=== PATIENT | female | born 1980 | race Caucasian/White ===

== ENCOUNTER 2016-07-07 08:12 | Inpatient (IN) | payer OTHER ==
[2016-07-07] VITALS (20 sets, daily range): BP systolic 110–143; BP diastolic 55–84
[~2016-07-07] VITALS: Ht 154.9 cm; Wt 66.2 kg
[~2016-07-07 08:12] MED LIST: VOL-PLUS TABLE1 EAC1 PO; ZOFRAN ODT4 MG PO
[2016-07-07] MEDS ORDERED: METHADONE10 MG PO (08:41)
[2016-07-07 10:34] LABS: EOSINOPHIL (%) 0.3 % (0-5); HEMATOCRIT 32.1 % (36.0-46.0); IMMATURE GRANULOCYTE (%) 0.3 % (0.0-0.7); INSTRUMENT ABS NEUTROPHIL CT 6.7 K/uL; MCH 33.9 PG (29.0-34.0); MCHC 34.9 G/DL (30.0-36.0); MCV 97.3 FL (83-99); MEAN PLAT.VOLUME 11.4 uM^3 (9.5-12.4); MONOCYTE (%) 5.7 % (3-12); MONOCYTE COUNT 0.5 K/uL (0-0.8); NEUTROPHIL (%) 71.7 % (45-76); NEUTROPHIL COUNT 6.7 K/uL (1.8-6.4); PLATELET COUNT 229 K/uL (156-360); RBC DIS.WIDTH-SD 46.3 % (39-53); WHITE BLOOD COUNT 9.3 K/uL (4.1-10.2)
[2016-07-07 11:04] LABS: AMPHETAMINE NEGATIVE (500 ng/mL); BARBITURATES NEGATIVE (200 ng/mL); BENZODIAZEPINES NEGATIVE (150 ng/mL); COCAINE NEGATIVE (150 ng/mL); METHADONE PRESUMPTIVE POSITIVE (200 ng/mL); METHAMPHETAMINE NEGATIVE (500 ng/mL); OPIATES (MORPHINE) NEGATIVE (100 ng/mL); OXYCODONE NEGATIVE (100 ng/mL); PHENCYCLIDINE NEGATIVE (25 ng/mL); PROPOXYPHENE NEGATIVE (300 ng/mL); THC CANNABINOIDS PRESUMPTIVE POSITIVE (50 ng/mL); TRICYCLIC ANTIDEPRESSANTS NEGATIVE (300 ng/mL)
[2016-07-07 11:05] LABS: ADD MEDTOX COMMENT Y; INTERNAL CONTROLS VALID? YES
[2016-07-08 07:06] VITALS: BP 118/72
[2016-07-08 08:45] LABS: BASOPHIL COUNT 0.1 K/uL (0-0.1); EOSINOPHIL (%) 0.6 % (0-5); EOSINOPHIL COUNT 0.1 K/uL (0-0.3); IMMATURE GRANULOCYTE (%) 0.4 % (0.0-0.7); IMMATURE GRANULOCYTE COUNT 0.1 K/uL; INSTRUMENT ABS NEUTROPHIL CT 8.7 K/uL; MCH 33.6 PG (29.0-34.0); MCHC 34.1 G/DL (30.0-36.0); MCV 98.6 FL (83-99); MEAN PLAT.VOLUME 11.6 uM^3 (9.5-12.4); MONOCYTE (%) 5.4 % (3-12); MONOCYTE COUNT 0.7 K/uL (0-0.8); NEUTROPHIL (%) 69.1 % (45-76); NEUTROPHIL COUNT 8.7 K/uL (1.8-6.4); PLATELET COUNT 213 K/uL (156-360); RBC DIS.WIDTH-CV 13.2 % (11.8-14.6); RBC DIS.WIDTH-SD 47.6 % (39-53); RED BLOOD COUNT 3.45 M/uL (3.80-5.20)
[2016-07-08 08:51] LABS: WHITE BLOOD COUNT 12.6 K/uL (4.1-10.2)
[2016-07-08 16:01] VITALS: BP 118/76
[2016-07-08 22:46] VITALS: BP 122/61
[2016-07-09 07:55] VITALS: BP 127/79
== END 2016-07-09 14:55 | disposition home or self-care (01) | DRG 775 ==
LOC: LDRP-OP 08:12 → 2WEST 08:13 → LDRP-OP 15:43 → 2WEST 16:10 → LDRP-OP 08-22 10:22
PROVIDERS: Advanced Practice Midwife
PROC: 3E0S3CZ (ICD-10-PCS; principal; 2016-07-07)
PROC: 10E0XZZ Delivery of Products of Conception, External Approach (ICD-10-PCS; principal; 2016-07-07)
PROC: 00HU33Z Insertion of Infusion Device into Spinal Canal, Percutaneous Approach (ICD-10-PCS; principal; 2016-07-07)
PROC: 3E0P7GC Introduction of Other Therapeutic Substance into Female Reproductive, Via Natural or Artificial Opening (ICD-10-PCS; principal; 2016-07-07)
DX: O36.5930 Maternal care for other known or suspected poor fetal growth, third trimester, not applicable or unspecified (principal); F11.20 Opioid dependence, uncomplicated; O99.334 Smoking (tobacco) complicating childbirth; F17.210 Nicotine dependence, cigarettes, uncomplicated; O99.324 Drug use complicating childbirth; Z3A.37 37 weeks gestation of pregnancy; Z37.0 Single live birth
CPT/HCPCS: 84999; 85025; 88307; C1755; J3010; J7120